=== PATIENT | female | born 1975 | race Two or more races ===

== ENCOUNTER 2022-06-30 16:12 | Inpatient (IN) | payer OTHER ==
[~2022-06-30] VITALS: Ht 157.5 cm; Wt 95.3 kg
[2022-07-01] MEDS ORDERED: LOSARTAN-HCTZ1 EAC2 PO (13:23)
== END 2022-07-06 15:20 | disposition home or self-care (01) | DRG 743 ==
LOC: OB/GYN 07-03 05:15 → O/R 07-03 05:15 → OB/GYN 07-03 07:00
PROVIDERS: ADMIT Obstetrics & Gynecology Gynecologic Oncology; ATTEND Obstetrics & Gynecology Gynecologic Oncology
PROC: 0UT54ZZ Resection of Right Fallopian Tube, Percutaneous Endoscopic Approach (ICD-10-PCS; 2022-07-03)
PROC: 0UT04ZZ Resection of Right Ovary, Percutaneous Endoscopic Approach (ICD-10-PCS; 2022-07-03)
PROC: 0TN64ZZ Release Right Ureter, Percutaneous Endoscopic Approach (ICD-10-PCS; 2022-07-03)
PROC: 0DNW4ZZ Release Peritoneum, Percutaneous Endoscopic Approach (ICD-10-PCS; 2022-07-03)
PROC: 0UT94ZZ Resection of Uterus, Percutaneous Endoscopic Approach (ICD-10-PCS; principal; 2022-07-03 07:00)
DX: D25.1 Intramural leiomyoma of uterus (principal); N72 Inflammatory disease of cervix uteri; N73.6 Female pelvic peritoneal adhesions (postinfective); N83.11 Corpus luteum cyst of right ovary; Z20.822 Contact with and (suspected) exposure to COVID-19; E87.6 Hypokalemia